=== PATIENT | female | born 1960 | race Caucasian/White ===

== ENCOUNTER → 2020-07-17 | Outpatient (CLI) | payer BC ==
[~2020-07-17] MED LIST: DYAZIDE 25 MG-31 CAP PO; FISH OIL REGUL300 MG PO; GLUCOSAMINE PO; GLUCOTROL XL10 MG PO; LANTUS SOLOS100 U/ML SC; LORTAB 5/500 501 TAB PO; METFORMIN ER500 MG PO; MULTIVITAMIN1 SGL PO; NO HOME MEDICATIONS; PRAVACHOL 40MG40 MG PO; PRIL40 PO; [UNRECOGNIZED DRUG - OTHER] PO
== END ==
LOC: MC.RAD 15:42
DX: Z12.31 Encounter for screening mammogram for malignant neoplasm of breast (principal); Z01.411 Encounter for gynecological examination (general) (routine) with abnormal findings

== ENCOUNTER 2021-01-13 12:15 | Inpatient (IN) | payer OTHER ==
[~2021-01-13] VITALS: Ht 154.9 cm; Wt 82.0 kg
[2021-01-13 12:46] LABS: BASO % 0.4 % (0.0-2.0); EOS % 0.3 % (0-4.0); GRAN # 5.6 (1.4-6.5); GRAN % 75.1 % (42.2-75.2); HEMATOCRIT 46.9 % (37.0-47.0); HEMOGLOBIN 15.1 g/dl (12.5-16.0); LYMPH % 12.8 % (20.0-51.0); MEAN CELL VOLUME 81 fl (80.0-100.0); MEAN CORPUSCULAR HEMOGLOBIN 26 pg (27.0-31.0); MEAN CORPUSCULAR HGB CONC 32 g/dl (33.0-37.0); MEAN PLATELET VOLUME 11.1 fl (7.4-10.4); MONO # 0.8 (0.1-0.6); MONO % 10.7 % (1.7-9.3); PLATELET COUNT 267 K/mm3 (130-400); RED BLOOD COUNT 5.78 M/mm3 (4.10-5.30); REDCELL DISTRIBUTION WIDTH-CV 14.6 % (11.5-14.5)
[2021-01-13 12:56] LABS: ALBUMIN 3.6 gm/dL (3.5-5.0); BILIRUBIN,TOTAL 0.6 mg/dL (0.0-1.0); CREATININE, serum 0.63 (0.52-1.25); POTASSIUM 3.5 mmol/L (3.4-5.0); TOTAL PROTEIN 7.5 gm/dL (6.4-8.2)
[2021-01-13] MEDS ORDERED: SYNTHROID0.05 MG/TA PO (13:59)
[2021-01-13] MEDS ORDERED: PRAVACHOL 20MG20 MG PO (14:00)
[2021-01-13] MEDS ORDERED: GLUCOPHAGE XR500 M1 PO (14:00)
[2021-01-13] MEDS ORDERED: PRILOSEC10 MG PO (14:01)
[2021-01-13] MEDS ORDERED: ASPIRIN 81M81 MG/TA2 PO (14:01)
[2021-01-13] MEDS ORDERED: LANTUS100 U/ML SQ (14:03)
[2021-01-13 15:24] VITALS: PULSE 85; TEMP 98.1
--- NOTE | 2021-01-13 15:30 | NUR ---
Patient to room 305 from the ED in wheelchair. Nurse oriented the patient to location, room and call light. VSS 2L NC O2. No reported SOB. IV CDI. Denies pain and discomfort. Assessment complete. Ice water provided. Patient independent in the room. No further needs expressed from the patient
[2021-01-13 15:58] VITALS: BP 147/75
--- NOTE | 2021-01-13 18:06 | NUR ---
Patient sitting up in bed. VSS. 3L NC. No reported SOB. Denies pain and discomfort. IV CDI. Droplet/contact precautions in place. Call light within reach
[2021-01-13 20:15] VITALS: BP 157/80; PULSE 96; TEMP 97.8
[2021-01-14 00:48] VITALS: BP 167/83; PULSE 94; TEMP 97.9
--- NOTE | 2021-01-14 03:08 | NUR ---
PATIENT ALERT AND ORIENTED. VSS, AFEBRILE. DENIES ANY DISCOMFORT. SAT LOW 90'S PM 3 L NC. PATIENT INDEPENDENT IN ROOM. CALL LIGHT ON REACH BED LOW. WILL CONTINUE TO MONITOR.
[2021-01-14 04:07] VITALS: BP 157/97; PULSE 102; TEMP 98.1
[2021-01-14 06:31] LABS: HEMATOCRIT 46.7 % (37.0-47.0); HEMOGLOBIN 15.3 g/dl (12.5-16.0); MEAN CELL VOLUME 80 fl (80.0-100.0); MEAN CORPUSCULAR HEMOGLOBIN 26 pg (27.0-31.0); MEAN CORPUSCULAR HGB CONC 33 g/dl (33.0-37.0); MEAN PLATELET VOLUME 11.2 fl (7.4-10.4); PLATELET COUNT 309 K/mm3 (130-400); RED BLOOD COUNT 5.81 M/mm3 (4.10-5.30); REDCELL DISTRIBUTION WIDTH-CV 14.2 % (11.5-14.5)
[2021-01-14 06:39] LABS: C-REACTIVE PROTEIN 7.6 mg/dL (0.0-0.9); CALCIUM 9.3 mg/dL (8.4-10.2); CREATININE, serum 0.46 (0.52-1.25); POTASSIUM 3.7 mmol/L (3.4-5.0)
[2021-01-14 07:42] LABS: BAND 8 % (0-10); LYMPHOCYTE 16 % (20.0-51.0); METAMYELOCYTE 1 % (0-0); NEUTROPHILS 65 % (42.0-75.2); PLATELET ESTIMATE NORMAL (NORMAL)
--- NOTE | 2021-01-14 09:00 | NUR ---
Scheduled medication given. Shift assessment preformed. Patient currently requiring 6L of O2 via oxy mask. Patient denies any N/V, but does state that she has been having diarrhea and SOA upon exertion. Patient is afebrile. Patient denies any further needs at this time. Will continue to monitor. Call light in reach.
--- NOTE | 2021-01-14 11:12 | NUR ---
The patient is COVID positive. SW contacted the patient's room phone to discuss discharge plan. The patient lives in [place] with her , Davian (ph#[phone]). She reports independence with ADLs and does not have any DME. The patient's PCP is Dr. Nuzhat Alonso and she receives her medications from [facility]. She reports no difficulties obtaining her meds. The patient does not have a DPOA-HC. The patient plans to return home with her upon discharge. She is currently on 4 liters of oxygen. SW to continue to monitor. *Discharge plan: home with *
--- NOTE | 2021-01-14 11:42 | NUR ---
Dr. Rutherford updated on patient's status.
[2021-01-14 12:30] VITALS: BP 177/96; PULSE 97; TEMP 97.5
[2021-01-14 13:27] VITALS: BP 164/86
--- NOTE | 2021-01-14 16:57 | NUR ---
Patient reports COV-19 Home test kit purchased at [facility] positive on or about 01/03/21. Daughter symptomatic and positive at about the same time.
--- NOTE | 2021-01-14 18:00 | NUR ---
Patient's O2 requirements have increased throughout this shift. She is currently requiring 9L of O2 via oxy mask. Patient becomes very SOA upon exertion. Dr. Ramirez made aware of increased needs. BP has also become elevated during this shift. JHOANA Kiran notified, apresoline ordered. Patient denies any further pain, discomfort, or needs at this time. Will continue to monitor. Call light in reach.
[2021-01-14 19:09] VITALS: BP 182/92; PULSE 95
--- NOTE | 2021-01-14 23:17 | NUR ---
Shift assessment completed. Patient alert and oriented. Patient denies any pain or discomfort. Patient denies SOB or dyspnea while at rest. Patient currently on 9L oxygen via oxymask. Breathing even and unlabored. No acute respiratory distress noted at this time. Patient denies N/V or diarrhea. Non-productive cought noted. PRN cough med given per SEP. PRN hydralazine given for BP 182/92. Patient asymptomatic. Call light within reach. Will continue to monitor for any changes.
[2021-01-14 23:48] VITALS: BP 138/68; PULSE 80; TEMP 98.8
[2021-01-15 06:16] VITALS: BP 140/71; PULSE 83; TEMP 97.9
[2021-01-15 08:00] VITALS: BP 122/60; PULSE 84; TEMP 98
--- NOTE | 2021-01-15 10:00 | NUR ---
Scheduled medications given. Shift assessment preformed. VSS. Patient is currently requiring 8L of O2 via nasal cannula. Patient denies any N/V/D, patient is afebrile. Patient denies any pain, discomfort, or futher needs at this time. Will continue to closely monitor. Call light in reach.
[2021-01-15 11:33] VITALS: BP 137/70; PULSE 88; TEMP 97.7
[2021-01-15 17:51] VITALS: BP 147/86; PULSE 85; TEMP 98.1
--- NOTE | 2021-01-15 18:00 | NUR ---
Patient has had a good day. Patient is currently requiring 7L of O2 via oxymask. VSS. Patient denies any pain, discomfort, or further needs at this time. Will continue to monitor. Call light in reach.
[2021-01-15 20:53] VITALS: BP 151/70; PULSE 101; TEMP 98.3
[2021-01-16 00:17] VITALS: BP 156/81; PULSE 81; TEMP 98
[2021-01-16 05:54] VITALS: BP 145/81; PULSE 89; TEMP 98.4
[2021-01-16 07:15] LABS: BASO % 0.2 % (0.0-2.0); EOS # 0.1 (0.0-0.7); EOS % 0.6 % (0-4.0); GRAN # 9.3 (1.4-6.5); GRAN % 72.2 % (42.2-75.2); HEMATOCRIT 43.9 % (37.0-47.0); HEMOGLOBIN 14.2 g/dl (12.5-16.0); LYMPH % 15.2 % (20.0-51.0); MEAN CELL VOLUME 81 fl (80.0-100.0); MEAN CORPUSCULAR HEMOGLOBIN 26 pg (27.0-31.0); MEAN CORPUSCULAR HGB CONC 32 g/dl (33.0-37.0); MEAN PLATELET VOLUME 11.1 fl (7.4-10.4); MONO # 1.3 (0.1-0.6); MONO % 10.4 % (1.7-9.3); RED BLOOD COUNT 5.43 M/mm3 (4.10-5.30); REDCELL DISTRIBUTION WIDTH-CV 14.3 % (11.5-14.5)
[2021-01-16 07:25] LABS: PLATELET COUNT 412 K/mm3 (130-400)
[2021-01-16 07:30] LABS: CALCIUM 9.4 mg/dL (8.4-10.2); CREATININE, serum 0.58 (0.52-1.25); MAGNESIUM 1.9 mg/dL (1.6-2.3)
[2021-01-16 08:47] VITALS: BP 148/82; PULSE 88; TEMP 99
[2021-01-16 13:04] VITALS: BP 155/95; PULSE 91; TEMP 98.1
[2021-01-16 17:29] VITALS: BP 162/92; PULSE 87; TEMP 98.1
[2021-01-16 19:48] VITALS: BP 155/90; PULSE 88; TEMP 97.9
--- NOTE | 2021-01-16 20:00 | NUR ---
Assessment complete. Patient currently sitting in bed, on 5 liters 02 and satting 90-92%. No signs of SOA are noted. Patient has no complaints of pain and no edema is present. Pulses are palpable. Patient is afebrile. Lungs are diminished throughout and HR is regular rhythm with a 92 bpm rate. Comfort measures are provided and no new concerns are noted. Call light in reach, will continue to monitor.
[2021-01-17] VITALS (7 sets, daily range): BP systolic 134–157; BP diastolic 56–90; PULSE 69–94; TEMP 97.9–98.4
[2021-01-17 07:56] LABS: BASO # 0.1 (0.0-0.2); BASO % 0.5 % (0.0-2.0); EOS # 0.3 (0.0-0.7); EOS % 2.3 % (0-4.0); GRAN # 7.1 (1.4-6.5); GRAN % 65.7 % (42.2-75.2); HEMOGLOBIN 13.6 g/dl (12.5-16.0); LYMPH % 18.4 % (20.0-51.0); MEAN CELL VOLUME 82 fl (80.0-100.0); MEAN CORPUSCULAR HEMOGLOBIN 27 pg (27.0-31.0); MEAN CORPUSCULAR HGB CONC 32 g/dl (33.0-37.0); MEAN PLATELET VOLUME 10.9 fl (7.4-10.4); MONO # 1.3 (0.1-0.6); MONO % 11.9 % (1.7-9.3); PLATELET COUNT 397 K/mm3 (130-400); RED BLOOD COUNT 5.12 M/mm3 (4.10-5.30); REDCELL DISTRIBUTION WIDTH-CV 14.3 % (11.5-14.5)
[2021-01-17 08:11] LABS: BILIRUBIN,TOTAL 0.6 mg/dL (0.0-1.0); CALCIUM 9.2 mg/dL (8.4-10.2); CREATININE, serum 0.52 (0.52-1.25); POTASSIUM 3.6 mmol/L (3.4-5.0); TOTAL PROTEIN 6.3 gm/dL (6.4-8.2)
--- NOTE | 2021-01-17 15:56 | NUR ---
0730 PT RECEIVED SITTING IN BED WATCHING TV. NO S/S OF DISTRESS NOTED. PT DENIES HAVING PAIN. CALL-LIGHT IN REACH. BED IN LOW POSITION. WILL CONTINUE TO MONITOR. 0900 MEDICATIONS ADMINISTERED ORDERED. PT VOICES NO CONCERNS AT THE MOMENT. PT ATE HER MEAL. VITAL SIGNS STABLE. PT ON 5L OF OXYGEN. ISOLATION PRECAUTION MAINTAINED. WILL CONTINUE TO MONIOTR. 1200 PT ATE HER LUNCH. OXYGEN TITRATED TO 3L BY RESPIRATORY THERAPIST AND PT IS MAINTAINING HER OXYGEN LEVEL ABOVE 90%. WILL CONTINUE TO MONITOR.
--- NOTE | 2021-01-17 20:00 | NUR ---
PATIENT IS A&O. VSS. DENIES PAIN OR SOA. NOTED MILD DYSPNEA ON EXERSION. 02 AT 2L PER NC WITH SATS IN WA 90'S. A&P LUNG ENCINAS ARE CLEAR IN UPPER LOBES AND DEMINISHED IN BASES WITH POSTERIOR FC NOTED. NO COUGHING AT THIS TIME. PATIENT ON CONTACT FOR COVID. HEAD TO TOE ASSESSMENT COMPLETE. NOTED LARGE, HALF DOLLARE SIZE, RIGHT LOWER ABD QUAD BRUISE THAT PATIENT THINKS CAME FROM A KNOT ON HER PANTS THAT SHE SLEPT ON AT HOME. EVENING MEDS GIVEN. LEFT HAND IV TO INT. NO C/O N/V. PATIENT EAT/DRINK/VOIDING SUFFICENT AMOUNTS. NO OTHER NEEDS AT THIS TIME. CALL LIGHT IN REACH.
[2021-01-18 03:35] VITALS: BP 153/84; PULSE 86; TEMP 98
[2021-01-18 08:32] VITALS: BP 135/69; PULSE 88; TEMP 97.9
[2021-01-18] MEDS ORDERED: DECADRON6 MG PO (10:04)
--- NOTE | 2021-01-18 12:05 | NUR ---
The patient is to discharge back home with today, 01/18. An exercise oximetry was ordered. RT notified SW that the patient qualified for 4 liters of oxygen. SW contacted the patient to review the above and informed her of the different DME companies. The patient was agreeable to get her oxygen from [facility]. She had no other concerns for SW. SARA contacted and faxed the oxygen order to Anna at [facility]. Awaiting delivery of oxygen. SARA updated the patient's RN.
[2021-01-18 12:36] VITALS: BP 151/81; PULSE 82; TEMP 97.8
--- NOTE | 2021-01-18 14:02 | NUR ---
Naga, with [facility], delivered the patient's oxygen. SARA notified the patient's RN. No additional needs at this time.
--- NOTE | 2021-01-18 15:38 | NUR ---
1500 PT DC AT THIS TIME. NO S/S OF DISTRESS NOTED. OXYGEN [employer]ENSIC [employer] ANALYST DELIVERED OXYGEN AND INSTRUCTIONS WERE GIVEN TO PT. DC INSTRUCTIONS GIVEN TO PT AND SHE VERBALIZES THAT SHE UNDERSTANDS. IV DC AND PT TOLERATED WELL. PT TOOK ALL HER BELONGINGS. OXYGEN REP MADE AWARE THAT PT IS LEAVING AT THIS TIME TO MEET HER AT HOME WITH ADDITIONAL HOME OXYGEN.
== END 2021-01-18 15:30 | disposition home or self-care (01) | DRG 177 ==
LOC: COL.ER 12:15 → MEDICAL 13:40
PROVIDERS: Physician Assistant; ADMIT Internal Medicine
PROC: XW033E5 Introduction of Remdesivir Anti-infective into Peripheral Vein, Percutaneous Approach, New Technology Group 5 (ICD-10-PCS; principal; 2021-01-13)
DX: U07.1 COVID-19 (principal); J12.82 Pneumonia due to coronavirus disease 2019; J96.01 Acute respiratory failure with hypoxia; E03.9 Hypothyroidism, unspecified; E11.9 Type 2 diabetes mellitus without complications; Z90.721 Acquired absence of ovaries, unilateral; Z87.891 Personal history of nicotine dependence; Z79.82 Long term (current) use of aspirin; Z79.84 Long term (current) use of oral hypoglycemic drugs; Z90.710 Acquired absence of both cervix and uterus
CPT/HCPCS: 99223-AI; 99232-AI; 99233-AI; A9284; J0360; J0696; J1650; J1815; J7050; J8540